=== PATIENT | male | born 1970 | race Caucasian/White ===

== ENCOUNTER 2019-02-11 14:42 | Outpatient (CLI) | payer OTHER | END 2019-02-11 23:59 | disposition home or self-care (01) | LOC: RAD 14:42 | PROVIDERS: ATTEND Physician Assistant | DX: K59.00 Constipation, unspecified (principal) | CPT/HCPCS: 74021 ==

== ENCOUNTER 2019-05-17 17:04 | Emergency (ER) | payer OTHER ==
[~2019-05-17] VITALS: Ht 182.9 cm; Wt 118.9 kg
[2019-05-17 18:02] VITALS: BP 154/88
--- NOTE | 2019-05-17 18:17 | NUR ---
PT HERE FOR BACK PAIN- WORKER'S COMP. 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 DENIES INCONTINENCE. DENIES N/T. RESTING ON GURNEY. NADN. ALL EXTREMITIES STRONG 5/5 EQUAL BILATERALLY. PA AT BEDSIDE ASSESSING PT NOW.
[2019-05-17] MEDS ORDERED: KETOROLAC 30 MG/1 ML IM ONE (18:30)
[2019-05-17] MEDS ORDERED: METHOCARBAMOL 750 MG TABLET PO ONE (18:30)
[2019-05-17] MEDS ORDERED: METHOCARBAMOL 750 MG TABLET ONE (18:31)
[2019-05-17] MEDS ORDERED: KETOROLAC 30 MG/1 ML ONE (18:31)
--- NOTE | 2019-05-17 18:36 | NUR ---
PT MEDICATED PER EMAR.
== END 2019-05-17 18:51 | disposition home or self-care (01) ==
LOC: ED 18:45
DX: S39.012A Strain of muscle, fascia and tendon of lower back, initial encounter (principal); X58.XXXA Exposure to other specified factors, initial encounter; Y93.89 Activity, other specified; Y92.89 Other specified places as the place of occurrence of the external cause; Y99.8 Other external cause status
CPT/HCPCS: 96372; 99283; J1885

== ENCOUNTER → 2021-02-16 | Outpatient (CLI) | payer OTHER ==
[2021-02-16 09:15] LABS: ALBUMIN 4.1 g/dL (3.4-5.0); BILIRUBIN, DIRECT 0.1 mg/dL (0.1-0.2)
[2021-02-16 09:29] LABS: BILIRUBIN,INDIRECT 0.4 mg/dL (0.0-2.0); BILIRUBIN,TOTAL 0.5 mg/dL (0.2-1.0); FREE T4 (FREE THYROXINE) 0.81 ng/dL (0.76-1.46); TOTAL PROTEIN 7.4 g/dL (6.4-8.2)
== END | disposition home or self-care (01) ==
LOC: LAB 08:28
PROVIDERS: ATTEND Internal Medicine
DX: E03.9 Hypothyroidism, unspecified (principal)
CPT/HCPCS: 36415; 80076; 84439; 84443